=== PATIENT | female | born 1950 | race Caucasian/White ===

== ENCOUNTER 2024-09-17 07:45 | Outpatient (CLI) | payer MEDICARE | END 2024-09-17 07:46 | disposition home or self-care (01) | LOC: BICCT 07:45 | PROVIDERS: ATTEND Internal Medicine | DX: Z12.2 Encounter for screening for malignant neoplasm of respiratory organs (principal); R91.8 Other nonspecific abnormal finding of lung field; J98.11 Atelectasis; J98.4 Other disorders of lung; R59.0 Localized enlarged lymph nodes; N20.0 Calculus of kidney; D35.01 Benign neoplasm of right adrenal gland; M51.34 Other intervertebral disc degeneration, thoracic region; M85.88 Other specified disorders of bone density and structure, other site | CPT/HCPCS: 71271 ==